=== PATIENT | male | born 1955 | race Two or more races ===

== ENCOUNTER 2020-04-30 11:12 | Emergency (ER) | payer MEDICAID, OTHER ==
[~2020-04-30] VITALS: Ht 170.2 cm; Wt 68.0 kg
[2020-04-30] MEDS ORDERED: SODIUM CHLORIDE 0.9% 1,000 ML IV ONE (11:30)
[2020-04-30 11:58] LABS: Basophils # (auto) 0.1 10 ^3/uL (0-0.2); Basophils % (auto) 0.6 % (0.0-2.0); Eosinophils # (auto) 0.1 10 ^3/uL (0-0.8); Eosinophils % (auto) 1.1 % (0.0-7.0); Hematocrit 38.3 % (41.0-53.0); Hemoglobin 12.6 g/dL (13.5-17.5); Lymphocytes # (auto) 2.1 10 ^3/uL (0.4-5.4); Lymphocytes % (auto) 21.3 % (10.0-50.0); Mean Corpuscular Hemoglobin 29.2 pg (28.0-32.0); Mean Corpuscular Hgb Conc. 32.9 g/dL (32.0-36.0); Mean Corpuscular Volume 88.6 fL (80.0-100.0); Monocytes # (auto) 1.1 10 ^3/uL (0-1.3); Monocytes % (auto) 10.9 % (0.0-12.0); Neutrophils # (auto) 6.6 10 ^3/uL (1.6-8.6); Neutrophils % (auto) 66.1 % (37.0-80.0); Platelet Count (auto) 388 10^3/uL (140-450); Red Blood Cells 4.32 10^6/uL (4.5-5.90); Red Cell Distribution Width 14.3 % (11.8-14.3)
[2020-04-30 12:12] LABS: Potassium 4.1 mmol/L (3.5-5.1)
[2020-04-30 12:19] LABS: INR 0.99 (0.9-1.15); Partial Thromboplastin Time 27.7 sec (23.0-31.2)
[2020-04-30 12:25] LABS: Albumin 2.9 g/dL (3.4-5.0); BUN/Creatinine Ratio 15.4; Bilirubin, Total 0.7 mg/dL (0.2-1.0); Calcium 8.4 mg/dL (8.5-10.1); Total Protein 6.8 g/dL (6.4-8.2)
[2020-04-30] MEDS ORDERED: AZITHROMYCIN 500MG/ 250ML 250 ML IV ONE (12:45)
[2020-04-30] MEDS ORDERED: ENOXAPARIN SOD 80 MG/0.8ML SYRINGE SC ONE (12:45)
[2020-04-30] MEDS ORDERED: cefTRIAXone 1GM/50ML D5W 50 ML IV ONE (12:45)
[2020-04-30 18:24] VITALS: BP 152/81
== END 2020-04-30 18:50 | disposition designated cancer center or children's hospital (05) ==
LOC: EDBD 11:12 → ER 11:12
DX: S22.49XA Multiple fractures of ribs, unspecified side, initial encounter for closed fracture (principal); J18.9 Pneumonia, unspecified organism; J93.9 Pneumothorax, unspecified; R77.8 Other specified abnormalities of plasma proteins; Z20.822 Contact with and (suspected) exposure to COVID-19; V29.9XXA Motorcycle rider (driver) (passenger) injured in unspecified traffic accident, initial encounter; Y93.89 Activity, other specified; Y92.89 Other specified places as the place of occurrence of the external cause; Y99.8 Other external cause status
CPT/HCPCS: 36415; 71045; 71250; 72128; 72131; 74176; 80053; 84484; 85025; 85610; 85730; 87426; 96361; 96365; 96366; 96368; 96372; 99291; C9803; J0456; J0696; J1650; U0003